=== PATIENT | female | born 1965 | race Two or more races ===

== ENCOUNTER → 2017-05-03 | Outpatient (CLI) | payer OTHER | LOC: FIMAGING 09:28 | DX: Z12.31 Encounter for screening mammogram for malignant neoplasm of breast (principal) | CPT/HCPCS: G0202 ==

== ENCOUNTER 2019-01-04 09:56 | Emergency (ER) | payer OTHER ==
--- NOTE | 2019-01-04 10:15 | EDPHY ---
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 She is able to bear weight albeit with pain particularly with full extension. No instability. No direct trauma or fall. PRIMARY CARE PROVIDER: REVIEW OF SYSTEMS: A ten point review of systems was performed and is negative with the exception of the items mentioned in the HPI PHYSICAL EXAM (Prior to examination, patient consented to physical exam, hands were washed and my usual and customary physical exam procedures followed) 1) GENERAL: Well-developed, well-nourished, alert and oriented. Appears to be in no acute distress. Pulse oxygenation is 95% on room air. 2) HEAD: Normocephalic 3) HEENT: Pupils equal, round, reactive to light bilaterally. 4) LUNGS: Breathing comfortably. 5) MUSCULOSKELETAL: Exam of the right knee shows normal anatomic landmarks. No discoloration. . Tender to palpation medial aspect of knee.. Pain to the medial aspect of the knee with full extension of the knee. Full flexion extension albeit with pain with full extension. No gross instability. Compartments are soft. 6) SKIN: Intact no overlying skin changes 7) VASCULAR: DP,PT pulses and cap refill present and brisk distally DIFFERENTIAL DIAGNOSIS: in no particular order including but not limited to fracture, sprain, compartment syndrome, septic arthritis, DVT Xray of the right knee interpreted by myself: no definitive acute osseous abnormality MEDICAL DECISION MAKING Serial evaluations performed on patient. I discussed the limitations of x-ray in diagnosis of knee pain and injury. Patient has been informed that non osseous injury not ruled out I stressed the importance of follow-up with Employee Health and with Orthopedics. At this time I do not think that emergent MRI is currently indicated. However, I have recommended follow-up with Orthopedic surgery and provided this referral information. Informed the patient that outpatient MRI may be indicated. Doubt septic arthritis. Doubt compartment syndrome. Doubt DVT. Patient feels comfortable being discharged. All questions and concerns addressed by myself. Patient given my usual and customary discharge precautions and instructions regarding their clinical impression. Care of patient under supervision of secondary supervising physician Dr Rios . - Personal History LMP (Females 10-55): Post Menopausal Current Tetanus/Diphtheria Vaccine: Yes Current Tetanus Diphtheria and Acellular Pertussis (TDAP): Yes - Medical/Surgical History Hx Asthma: No Hx Chronic Respiratory Disease: No Hx Diabetes: No Hx Cardiac Disease: No Hx Renal Disease: No Hx Cirrhosis: No Hx Alcoholism: No Hx HIV/AIDS: No Hx Splenectomy or Spleen Trauma: No Other PMH: pmh: depression, hypothyroidism. psh: robert, 2 c-sections - Social History Smoking Status: Never smoked Constitutional: Initial Vital Signs Temperature (C) 36.6 C 01/04/19 10:02 Heart Rate 75 01/04/19 10:02 Respiratory Rate 14 01/04/19 10:02 Blood Pressure 145/81 H 01/04/19 10:02 O2 Sat (%) 5 L 01/04/19 10:02 O2 Delivery Mode Room Air Allergies/Adverse Reactions: No Known Allergies Allergy (Unverified 08/02/16 12:41) Home Medications: Medication Instructions Recorded Synthroid 08/02/16 Medical Decision Making - Diagnostics Imaging Results: Imaging Impressions Knee X-Ray 01/04/19 10:10 Impression: Joint effusion with no acute osseous findings. Images reviewed myself - Data Points Medications Given: Discontinued Medications Ibuprofen (Motrin) 600 mg PO EDNOW ONE Stop: 01/04/19 10:56 Last Admin: 01/04/19 10:57 Dose: 600 mg Departure - Departure Disposition: Home, Routine, Self-Care Clinical Impression: Right knee sprain Qualifiers: Encounter type: initial encounter Involved ligament of knee: unspecified ligament Qualified Code(s): S83.91XA - Sprain of unspecified site of right knee , initial encounter Condition: Good Instructions: Knee Sprain (ED) Additional Instructions: Return to the ER immediately if you experience discoloration, have worsening pain, numbness, tingling, or any other symptoms that concern you. If you received x-rays in the emergency department today, be advised, that ligamentous , tendon, muscular, and other non-bony injury cannot be fully ruled out. Try to keep your affected extremity elevated above the level of your chest, and keep cold packs on the affected area, for the next 48 hours. Adult Pain & Fever Control: We recommend Acetaminophen (Tylenol) and Ibuprofen (Motrin,Advil) for pain and fever control. When fever is high or pain severe, both drugs can be used at the same time, but at different intervals. Please note the time differences. Your dose is: Acetaminophen 650mg every 4 to 6 hours Ibuprofen 600mg every 6 hours with food OR . Note: do not take Acetaminophen with Hydrocodone (Vicodin, Lortab) or Oycodone (Percocet). These medications also contain Acetaminophen. No more than 3000mg of Acetaminophen should be taken in 24 hours (for an adult). Referrals: Mick Lyman MD [Medical Doctor] - 1-2 days without fail
[2019-01-04] MEDS ORDERED: IBUPROFEN 600 MG TAB PO ONE (10:55)
[2019-01-04 10:57] VITALS: BP 170/100
== END 2019-01-04 10:59 | disposition home or self-care (01) ==
DX: S83.91XA Sprain of unspecified site of right knee, initial encounter (principal); E03.9 Hypothyroidism, unspecified; X50.9XXA Other and unspecified overexertion or strenuous movements or postures, initial encounter; Y99.0 Civilian activity done for income or pay